=== PATIENT | male | born 1970 | race Caucasian/White ===

== ENCOUNTER 2020-02-12 08:46 | Outpatient (CLI) | payer BC, SELFPAY ==
--- NOTE | 2020-02-12 09:30 | EST_ITS ---
Patient Info Name: Skyler Polanco Age: 49 years : 1970 Gender: Male Ht: 72 in Wt: 370 lbs BSA: 3.01 m2 HR: 80 bpm BP: 140 / 90 mmHg Heart Rhythm: Sinus Rhythm Technical Quality: Excellent Exam Date: 02/12/2020 9:24 AM Exam Location: [facility] Patient Status: Outpatient Admit Date: 02/12/2020 Staff Ordering Physician: Edwin Delaney MD Attending Provider: Edwin Delaney MD Exercise Technologist: Ceci West CRT Exercise Physician: Trupti Ragland CEP Exam Type: CA stress jake w NM Study Info Indications AbnormalEKG - A nuclear stress test was performed. History/Risk Factors Patient has no known cardiac history or risk factors. Obesity. Summary 1. 1. Negative lexiscan stress test for ischemic ST changes by ECG criteria. 2. 2. Stable hemodynamics throughout the test. 3. 3. Nuclear scan to follow and will be reported separately. Please correlate with it. Protocol: LEXISCAN Stress ECG Details Stage: REST Duration (min): 1 min : 5 sec HR (bpm): 81 SBP (mmHg): 140 DBP (mmHg): 90 Stage: REST Duration (min): 7 min : 55 sec HR (bpm): 81 SBP (mmHg): 140 DBP (mmHg): 90 Stage: STAGE 1 Duration (min): 0 min : 8 sec HR (bpm): 75 SBP (mmHg): 140 DBP (mmHg): 90 Stage: RECOVERY Duration (min): 0 min : 52 sec HR (bpm): 109 SBP (mmHg): 140 DBP (mmHg): 90 Stage: RECOVERY Duration (min): 1 min : 52 sec HR (bpm): 105 SBP (mmHg): 97 DBP (mmHg): 65 Stage: RECOVERY Duration (min): 2 min : 25 sec HR (bpm): 98 SBP (mmHg): 97 DBP (mmHg): 65 Stage: RECOVERY Duration (min): 2 min : 52 sec HR (bpm): 98 SBP (mmHg): 118 DBP (mmHg): 61 Stage: RECOVERY Duration (min): 3 min : 52 sec HR (bpm): 91 SBP (mmHg): 124 DBP (mmHg): 60 Stage: RECOVERY Duration (min): 4 min : 52 sec HR (bpm): 93 SBP (mmHg): 129 DBP (mmHg): 56 Stage: RECOVERY Duration (min): 5 min : 52 sec HR (bpm): 94 SBP (mmHg): 136 DBP (mmHg): 70 Stage: RECOVERY Duration (min): 6 min : 6 sec HR (bpm): 91 SBP (mmHg): 136 DBP (mmHg): 70 Rest HR: 81 bpm Peak HR: 109 bpm Rest Sys BP: 140 mmHg Peak Sys BP: 136 mmHg Max Pred HR: 171 bpm % Max Pred HR: 64 % Target HR: 145 bpm Max RPP: 14,824 bpm*mmHg Termination Reason: Completion of Protocol Cardiac Symptoms: Dyspnea Total Time: 0 min : 8 sec Rest Soliz BP: 90 mmHg Peak Soliz BP: 70 mmHg Total Dose: 0.4 mg Resting ECG Sinus rhythm, IVCD. Stress ECG No ST changes. Arrhythmias No arrhythmias were observed during the examination. Report Signatures
== END 2020-02-12 08:47 | disposition home or self-care (01) ==
PROVIDERS: PCP Family Medicine; Visit Provider Family Medicine
DX: R94.31 Abnormal electrocardiogram [ECG] [EKG] (principal)
CPT/HCPCS: 78452; 93017; A9502; J2785

== ENCOUNTER → 2020-02-13 14:04 | Outpatient (CLI) | payer BC, SELFPAY ==
--- NOTE | ~2020-02-13 | XR_ITS ---
EXAMINATION: XR pelvis 1-2V DATE: 02/13/2020 14:58 INDICATION: Left hip pain. TECHNIQUE: An anteroposterior view of the pelvis was obtained on 2 radiographs. COMPARISON: CT abdomen and pelvis 08/21/2008 FINDINGS: Bone alignment is normal. There is depression of the superior articular surface of left fem oral head. There is moderate osteoarthritis of the hips. There is mild lumbar spondylosis. IMPRESSION: 1. Depression of the superior articular surface of left femoral head, which may be secondary to osteo necrosis. 2. Moderate osteoarthritis of the hips. Reviewed, dictated and finalized at location A. IMPRESSION: 1. Depression of the superior articular surface of left femoral head, which may be secondary to osteonecrosis. 2. Moderate osteoarthritis of the hips.
== END ==
PROVIDERS: PCP Family Medicine; Visit Provider Family Medicine
DX: M70.72 Other bursitis of hip, left hip (principal); M16.0 Bilateral primary osteoarthritis of hip
CPT/HCPCS: 72170

== ENCOUNTER 2020-04-08 11:09 | Outpatient (CLI) | payer BC, SELFPAY ==
--- NOTE | ~2020-04-08 | XR_ITS ---
EXAMINATION: XR lg joint inject/asp w image DATE: 04/08/2020 12:25 INDICATION: Left hip arthritis. TECHNIQUE: A time-out was performed to verify the patient's name, date of , and procedure to b e performed. The procedure including the risks, benefits, and alternatives was discussed with the pat ient. Risks discussed included bleeding and infection. The patient understood the risks and agreed to proceed. The skin overlying the left hip joint was prepped and draped in usual sterile fashion. An esthetic was administered with 1% lidocaine subcutaneously. A 22 G needle was advanced under fluoros copic guidance into the joint. Injection of 1 mL of Omnipaque 240 confirmed intra-articular position of the needle. Subsequently, injectate consisting of 2 mL 0.5% bupivacaine and 1 mL 80 mg/mL Depo-M edrol was instilled. The needle was removed and the entry site was cleaned and dressed. There were no immediate complications. Fluoroscopy exposure time was 0.1 minutes. The total number of images was 2. FINDINGS: Real-time fluoroscopy demonstrates the needle in the left hip joint. IMPRESSION: 1. Fluoroscopy guided left hip joint injection of local anesthetic and steroid . Reviewed, dictated and finalized at location A. INER OPERATOR
== END 2020-04-08 11:10 | disposition home or self-care (01) ==
LOC: ANHIMG 11:23
PROVIDERS: PCP Family Medicine; Visit Provider Nurse Practitioner Family
DX: M16.12 Unilateral primary osteoarthritis, left hip (principal)
CPT/HCPCS: 20610; 77002; J1040; Q9966

== ENCOUNTER 2020-07-10 11:22 | Outpatient (CLI) | payer BC, SELFPAY ==
--- NOTE | ~2020-07-10 | XR_ITS ---
EXAMINATION: XR lg joint inject/asp w image DATE: 07/10/2020 12:00 INDICATION: Left hip osteoarthritis with pain TECHNIQUE: A time-out was performed to verify the patient's name, date of , and procedure to b e performed. The procedure including the risks, benefits, and alternatives was discussed with the pat ient. Risks discussed included bleeding and infection. The patient understood the risks and agreed to proceed. The skin overlying the left hip joint was prepped and draped in usual sterile fashion. An esthetic was administered with 1% lidocaine subcutaneously. A 5 inch 22 G needle was advanced under fluoroscopic guidance into the joint. Injection of 0.5 mL of Omnipaque 240 confirmed intra-articular position of the needle. Subsequently, injectate consisting of 3 mm of a 2:1 mixture of 0.5% bupivac raymundo: 80 mg/mL Depo-Medrol for a total dose of 80 mg Depo-Medrol was instilled. Washout of contrast w as seen confirming intra-articular administration. The needle was removed and the entry site was helen dinh and dressed. There were no immediate complications. Fluoroscopy exposure time was 0.1 minutes. T he total number of images was 2. FINDINGS: Real-time fluoroscopy demonstrates the needle in the left hip joint. Patient's pain prior t o procedure:6/10. Patient's pain following the procedure: 0/10. IMPRESSION: 1. Left hip injection of local anesthetic and steroid with decrease in the patient's presenting pain. Reviewed, dictated and finalized at location A. IMPRESSION: 1. Left hip injection of local anesthetic and steroid with decrease in the angélica ent's presenting pain.
== END 2020-07-10 11:23 | disposition home or self-care (01) ==
PROVIDERS: PCP Family Medicine; Visit Provider Nurse Practitioner Family
DX: M16.12 Unilateral primary osteoarthritis, left hip (principal)
CPT/HCPCS: 20610; 77002; J1040; Q9966

== ENCOUNTER 2022-03-30 00:46 | Day surgery (SDC) | payer BC, SELFPAY ==
[2022-03-23 13:29] VITALS: BMI 43.6
--- NOTE | 2022-03-30 12:34 | P.PNAN_ITS ---
Anes - Initial Pre Proc Eval Procedure: Operation Date: 03/30/22 14:00 Proposed Procedures p Esophagogastroduodenoscopy & Colonoscopy - Ty Staley MD Date/Time: 03/30/22 12:34 Surgeon: Ty Staley MD Pre Op Diagnosis: Neoplasm Screening, Dysphagia Patient Data Age: 51 Gender: M Height: 1.85 m Weight: 150 kg Allergies Allergy/AdvReac Type Severity Reaction Status Date / Time No Known Allergies Allergy Unknown Verified 03/30/22 12:34 Home Medications Medication Instructions Recorded Confirmed Type sodium,potassium,mag sulfates 17.5 See Rx Instructions PO .COMPLEX 03/19/22 03/23/22 Rx gram-3.13 gram-1.6 gram oral soln #354 mL (Suprep Bowel Prep Kit) albuterol sulfate 90 mcg/actuation 2 inh inhalation DAILY PRN Wheezing 03/23/22 03/23/22 History aerosol inhaler omeprazole 20 mg capsule,delayed 40 mg PO DAILY 03/23/22 03/23/22 History release Patient hx anesthesia problems: none Family hx anesthesia problems: none Results Review: All pre-operative results and documents have been reviewed as part of the pre- operative evaluation. [facility] Past Medical History Medical History (Updated 03/18/22 @ 16:28 by Hafsa Diane, DMITRY) Barretts esophagus BMI greater than 40 Chest pain Colon cancer screening Coughing Degenerative joint disease (DJD) of hip History of esophageal stricture Left hip pain Obesity ARNOLD (obstructive sleep apnea) Wheezing Family History Family History Other Myasthenia Social History Social History Smoking status: Never smoker Tobacco type: smokeless tobacco Smokeless tobacco user: chewing tobacco Alcohol intake: current Drinks per week: 10 Alcohol use details: 6-8 drinks per week Substance use: never Substance use type: does not use Gender identity (if verbalized by the patient): Male Spiritual care concerns: No Anes - Eval Final PreProcedure Day of Procedure 03/30/22 12:34 Patient weight: morbidly obese Heart: regular rate and rhythm Lungs: clear to auscultation Airway: Mallampati scale class III Neurological: alert and oriented Last oral intake: >/= 8 hours ASA classification: III Emergent: no Anesthetic plan: proceed Anesthesia type and monitoring: general GIVS and standard monitoring Results Review: All pre-operative results and documents have been reviewed as part of the pre- operative evaluation. Informed Consent: The patient's anesthetic plan and its attendant risks and benefits were discussed with the patient/family/POA. Questions were solicited and answers prov ided to the satisfaction of the patient/family/POA.
[2022-03-30 12:46] VITALS: BP 147/93; PULSE 98; RESP 20; TEMP 36.2; O2SAT 98
[2022-03-30] MEDS: LACTATED RINGERS 1,000 ML 150 ML IV CONT (12:48)
--- NOTE | 2022-03-30 13:09 | PM.HPGS ---
History of Present Illness History of Present Illness Consent: Risks, benefits, and alternatives have been discussed and questions answered. Patient agrees to proceed with procedure. Chief complaint: Neoplasm Screening, Dysphagia Narrative: Skyler Polanco is a 51 year old male [facility] Past Medical History Medical History (Updated 03/18/22 @ 16:28 by Hafsa Diane APRN) Barretts esophagus BMI greater than 40 Chest pain Colon cancer screening Coughing Degenerative joint disease (DJD) of hip History of esophageal stricture Left hip pain Obesity ARNOLD (obstructive sleep apnea) Wheezing Family History Family History Other Myasthenia Social History Social History Smoking status: Never smoker Tobacco type: smokeless tobacco Smokeless tobacco user: chewing tobacco Alcohol intake: current Drinks per week: 10 Alcohol use details: 6-8 drinks per week Substance use: never Substance use type: does not use Gender identity (if verbalized by the patient): Male Spiritual care concerns: No Meds Home Medications and Allergies Home Medications Medication Instructions Recorded Confirmed Type sodium,potassium,mag sulfates 17.5 See Rx Instructions PO .COMPLEX 03/19/22 03/23/22 Rx gram-3.13 gram-1.6 gram oral soln #354 mL (Suprep Bowel Prep Kit) albuterol sulfate 90 mcg/actuation 2 inh inhalation DAILY PRN Wheezing 03/23/22 03/23/22 History aerosol inhaler omeprazole 20 mg capsule,delayed 40 mg PO DAILY 03/23/22 03/23/22 History release Allergies Allergy/AdvReac Type Severity Reaction Status Date / Time No Known Allergies Allergy Unknown Verified 03/30/22 12:34 Vital Signs Vital Signs - 24 hr 03/30/22 12:46 Temperature 97.2 F L Pulse Rate 98 Respiratory Rate 20 Blood Pressure 147/93 H Pulse Oximetry 98 Oxygen Delivery Room Air
--- NOTE | 2022-03-30 13:42 | SUR.OPER ---
EGD ENDED 1331, COLONOSCOPY STARTED 1339
[2022-03-30 13:55] VITALS: BP 143/96; PULSE 93; RESP 25; O2SAT 97
[2022-03-30 14:05] VITALS: BP 145/97; PULSE 85; RESP 17; O2SAT 98
[2022-03-30 14:15] VITALS: BP 155/95; PULSE 80; RESP 17; O2SAT 98
== END 2022-03-30 14:28 | disposition home or self-care (01) ==
PROVIDERS: PCP Family Medicine; Visit Provider Internal Medicine Gastroenterology
PROC: 0DJ08ZZ Inspection of Upper Intestinal Tract, Via Natural or Artificial Opening Endoscopic (ICD-10-PCS; CPT 43235; principal; 2022-03-30 14:00)
DX: Z12.11 Encounter for screening for malignant neoplasm of colon (principal); D12.5 Benign neoplasm of sigmoid colon; K22.70 Barrett's esophagus without dysplasia; R13.10 Dysphagia, unspecified; G47.33 Obstructive sleep apnea (adult) (pediatric); E66.01 Morbid (severe) obesity due to excess calories; Z68.41 Body mass index [BMI] 40.0-44.9, adult; F17.220 Nicotine dependence, chewing tobacco, uncomplicated
CPT/HCPCS: 45385; 43249; 88305; C1726; J2704; J7120

== ENCOUNTER 2023-06-15 02:25 | Day surgery (SDC) | payer OTHER, SELFPAY ==
[2023-06-02 13:52] VITALS: BMI 45.9
--- NOTE | 2023-06-11 15:01 | PC.NURSE ---
Patient called regarding upcoming procedure. Reviewed preop instructions, appointment times, and procedure prep.
[2023-06-15 13:30] VITALS: BP 148/94; PULSE 88; RESP 18; TEMP 36; O2SAT 99; BMI 44.9
[2023-06-15] MEDS: LACTATED RINGERS 1,000 ML 150 ML IV CONT (13:56)
--- NOTE | 2023-06-15 14:09 | WPDANESEPPF ---
Anes - Initial Pre Proc Eval Procedure: Operation Date: 06/15/23 15:00 Proposed Procedures p Esophagogastroduodenoscopy - Errol Valles MD Date/Time: 06/15/23 14:09 Surgeon: Errol Valles MD Pre Op Diagnosis: dysphagia,Gore's Esophagus Patient Data Age: 52 Gender: M Height: 1.85 m Weight: 154.4 kg Last Vital Signs Temp 36.0 C L 06/15/23 13:30 Pulse 88 06/15/23 13:30 Resp 18 06/15/23 13:30 BP 148/94 H 06/15/23 13:30 Pulse Ox 99 06/15/23 13:30 O2 Del Method Room Air 06/15/23 13:30 Allergies Allergy/AdvReac Type Severity Reaction Status Date / Time No Known Allergies Allergy Unknown Verified 06/15/23 13:36 Home Medications Medication Instructions Recorded Confirmed Type albuterol sulfate 90 mcg/actuation 2 inh inhalation DAILY PRN Wheezing 03/23/22 06/15/23 History aerosol inhaler omeprazole 20 mg capsule,delayed 40 mg PO DAILY 03/23/22 06/15/23 History release Patient hx anesthesia problems: none Family hx anesthesia problems: none Results Review: All pre-operative results and documents have been reviewed as part of the pre-operative evaluation. [facility] Past Medical History Medical History Barretts esophagus BMI greater than 40 Chest pain Colon cancer screening Coughing Degenerative joint disease (DJD) of hip Dysphagia History of esophageal stricture Left hip pain Obesity ARNOLD (obstructive sleep apnea) Wheezing Family History Family History Other Myasthenia Social History Social History Smoking status: Never smoker Tobacco type: smokeless tobacco Smokeless tobacco user: chewing tobacco Alcohol intake: current Drinks per week: 3 Alcohol use details: 6-8 drinks per week Substance use: never Substance use type: does not use Living arrangements: with family Gender identity (if verbalized by the patient): Male Spiritual care concerns: No Anes - Eval Final PreProcedure Day of Procedure 06/15/23 14:09 Patient weight: morbidly obese Heart: regular rate and rhythm Lungs: clear to auscultation Airway: Mallampati scale class II Neurological: alert and oriented Last oral intake: >/= 8 hours ASA classification: III Emergent: no Anesthetic plan: proceed Anesthesia type and monitoring: general GIVS and standard monitoring Results Review: All pre-operative results and documents have been reviewed as part of the pre-operative evaluation. Informed Consent: The patient's anesthetic plan and its attendant risks and benefits were discussed with the patient/family/POA. Questions were solicited and answers provided to the satisfaction of the patient/family/POA.
--- NOTE | 2023-06-15 14:10 | PM.HPGS ---
History of Present Illness History of Present Illness Consent: Risks, benefits, and alternatives have been discussed and questions answered. Patient agrees to proceed with procedure. 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 Using omeprazole daily. Review of Systems Constitutional: Constitutional: Denies headache(s) and Denies weakness Eyes: Eyes: Denies blurry vision ENT: Reports Normal hearing present, Denies headache(s) and Denies neck pain Cardiovascular: Cardiovascular: Denies chest pain and Denies dyspnea Respiratory: Respiratory: Denies dyspnea Gastrointestinal: Gastrointestinal: Reports no additional gastrointestinal complaints Genitourinary: Genitourinary: Denies dysuria Musculoskeletal: Musculoskeletal: Denies neck pain Integumentary/Breasts: Skin/Breast: Denies dry skin Neurologic: Reports Normal hearing present, Denies headache(s) and Denies weakness Psychiatric: Psychiatric: Denies anxiety Endocrine: Endocrine: Denies change in body appearance Hematologic/Lymphatic: Hematologic/Lymphatic: Denies easy bleeding Allergic/Immunologic: Allergic/Immunologic: Denies urticaria PMFSH Past Medical History Medical History Barretts esophagus BMI greater than 40 Chest pain Colon cancer screening Coughing Degenerative joint disease (DJD) of hip Dysphagia History of esophageal stricture Left hip pain Obesity ARNOLD (obstructive sleep apnea) Wheezing Family History Family History Other Myasthenia Social History Social History Smoking status: Never smoker Tobacco type: smokeless tobacco Smokeless tobacco user: chewing tobacco Alcohol intake: current Drinks per week: 3 Alcohol use details: 6-8 drinks per week Substance use: never Substance use type: does not use Living arrangements: with family Gender identity (if verbalized by the patient): Male Spiritual care concerns: No Meds Home Medications and Allergies Home Medications Medication Instructions Recorded Confirmed Type albuterol sulfate 90 mcg/actuation 2 inh inhalation DAILY PRN Wheezing 03/23/22 06/15/23 History aerosol inhaler omeprazole 20 mg capsule,delayed 40 mg PO DAILY 03/23/22 06/15/23 History release Allergies Allergy/AdvReac Type Severity Reaction Status Date / Time No Known Allergies Allergy Unknown Verified 06/15/23 13:36 Vital Signs Vital Signs - 24 hr 06/15/23 13:30 Temperature 96.8 F L Pulse Rate 88 Respiratory Rate 18 Blood Pressure 148/94 H Pulse Oximetry 99 Oxygen Delivery Room Air Exam Const: General: comfortable, no acute distress and obese HENMT: Face/Nose/Sinus: Normal nares present Eyes: General: appearance normal, both eyes and all related structures Neck: Neck: no JVD Resp: Auscultation: clear to auscultation bilaterally Cardio: Rate: regular rate Rhythm: regular rhythm GI: Inspection: non-distended GI Palp: Yes Soft to palpation Skin: General skin exam: normal color Neuro: General: gait normal Speech: normal speech Extrem: General: normal to inspection Psych: Mental Status: mental status grossly normal Assessment and Plan Assessment and plan (1) Barretts esophagus: Code(s): K22.70 - Krueger's esophagus without dysplasia Status: Acute Assessment and Plan: egd with bx on ppi daily (2) History of esophageal stricture: Code(s): Z87.19 - Personal history of other diseases of the digestive system Status: Acute Assessment and Plan: may need dilation
[2023-06-15 14:27] VITALS: BP 148/96; PULSE 93; RESP 24; O2SAT 94
[2023-06-15 14:37] VITALS: BP 143/91; PULSE 79; RESP 22; O2SAT 99
[2023-06-15 14:47] VITALS: BP 146/97; PULSE 71; RESP 21; O2SAT 96
== END 2023-06-15 15:00 | disposition home or self-care (01) ==
PROVIDERS: PCP Family Medicine; Visit Provider Internal Medicine Gastroenterology
PROC: 0DJ08ZZ Inspection of Upper Intestinal Tract, Via Natural or Artificial Opening Endoscopic (ICD-10-PCS; CPT 43235; principal; 2023-06-15 15:00)
DX: K22.70 Barrett's esophagus without dysplasia (principal); K22.2 Esophageal obstruction; Z87.19 Personal history of other diseases of the digestive system; K21.9 Gastro-esophageal reflux disease without esophagitis; F17.220 Nicotine dependence, chewing tobacco, uncomplicated; E66.9 Obesity, unspecified; Z68.41 Body mass index [BMI] 40.0-44.9, adult; G47.33 Obstructive sleep apnea (adult) (pediatric)
CPT/HCPCS: 43239; 43249; 88305; C1726; J2704; J7120

== ENCOUNTER 2023-08-16 14:29 | Outpatient (CLI) | payer OTHER, SELFPAY ==
--- NOTE | ~2023-08-16 | XR_ITS ---
EXAMINATION: XR chest 2V 08/16/2023 14:49 INDICATION: Cough with wheezing PROCEDURE: 2 view chest COMPARISON: 07/13/2007 FINDINGS: The lungs are clear. The cardiomediastinal silhouette is within normal limits. There are no pleural effusions. There is no pneumothorax suspected. IMPRESSION: 1: NO ACUTE CARDIOPULMONARY DISEASE. Reviewed, dictated and finalized at location B.
== END 2023-08-16 14:30 | disposition home or self-care (01) ==
LOC: CHSIMG 14:33
PROVIDERS: PCP Family Medicine; Visit Provider Family Medicine
DX: R05.8 Other specified cough (principal)
CPT/HCPCS: 71046

== ENCOUNTER 2024-06-08 12:45 | Outpatient (CLI) | payer OTHER, SELFPAY ==
--- NOTE | ~2024-06-08 | XR_ITS ---
EXAMINATION: XR chest 2V 06/08/2024 12:59 INDICATION: Asthma and wheezing PROCEDURE: 2 view chest COMPARISON: 08/16/2023 FINDINGS: The lungs are clear. The cardiomediastinal silhouette is within normal limits. There are no pleural effusions. There is no pneumothorax suspected. IMPRESSION: 1: NO ACUTE CARDIOPULMONARY DISEASE. Reviewed, dictated and finalized at location B. [facility]
--- OUTSIDE RECORDS SUMMARY | 2024-06-08 12:51 | XMS_ITS | Clinical Summary ---
Author Organization [facility] [employer] Address [address] [place] [place] [address] Care Team Providers Care Baking Assistant Name Role Phone Unavailable Primary Care Provider Unavailabl e Source Comments [facility] [employer],non-owned Affiliates and Associated Physician Practices is amultiple site organization consisting of ambulatory clinics and hospital sitesin [place], [place], [place] and [place]. This disclosure is being madepursuant to the Care Everywhere program and may not contain all information available regarding this patient. Last updated 18.[employer] [employer] Allergies No known active allergies Medications * Be aware that medications may not be up to date on this document. Alwaysverify current medications with the patient. 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 Pulse 106 05/13/2016 1:57 PM MACHINING AND ASSEMBLY SUPERVISOR Temperature 36.6 C (97.9 F) 05/13/2016 1:57 PM MACHINING AND ASSEMBLY SUPERVISOR Respiratory Rate 16 05/13/2016 1:57 PM MACHINING AND ASSEMBLY SUPERVISOR Oxygen Saturation 96% 05/13/2016 1:57 PM MACHINING AND ASSEMBLY SUPERVISOR Inhaled Oxygen Concentration - - Weight 142.9 kg (315 lb) 05/13/2016 1:57 PM MACHINING AND ASSEMBLY SUPERVISOR Height 185.4 cm (6' 1 ) 05/13/2016 1:57 PM MACHINING AND ASSEMBLY SUPERVISOR Body Mass Index 41.56 05/13/2016 1:57 PM MACHINING AND ASSEMBLY SUPERVISOR Plan of Treatment Health Maintenance Due Date Last Done Comments COLOGUARD (AGES 45-75) - COL ON CA SCREENING 1970 COLON MONITORING 1970 COLONOSCOPY - COLON CA SCREENING 1970 CT COLONOGRAPHY - COLON CA SCREENING 1970 Colorectal Cancer Screening 1970 FIT - COLON CA SCREENING 1970 FLEX SIG - COLON CA SCREENING 1970 LIPID TESTING 1970 HIV SCREENING 1985 HEPATITIS C SCREENING 10/24/1988 DTAP/TDAP/TD VACCINES (1 - Tdap) 1989 HEPATITIS B VACCINE (1 of 3 - 19+ 3-dose series) 1989 PNEUMOCOCCAL VACCINE 50+ (1 of 1 - PCV) 2020 ZOSTER VACCINE (1 of 2) 2020 COVID-19 VACCINE (1 - 2023-2 5 season) 2023 INFLUENZA VACCINE (#1) 2023 DEPRESSION SCREENING 04/19/2024 HIB VACCINE Aged Out No longer eligi ble based on patient's age to complete this topic HPV VACCINE Aged Out No longer eligi ble based on patient's age to complete this topic MENINGOCOCCAL (Group B) VACCINE Aged Out No longer eligible based on patient's age to complete this topic MENINGOCOCCAL VACCINE Aged Out No tucker isidra eligible based on patient's age to complete this topic PNEUMOCOCCAL VACCINE Aged Out No long er eligible based on patient's age to complete this topic
--- OUTSIDE RECORDS SUMMARY | 2024-06-08 12:51 | XMS_ITS | Referral Summary ---
Author Organization [facility] Healthcare Address [address] [place] [address] Care Team Providers Care Wildlife Management Professor Name Role Phone Edwin Delaney MD Primary Care Provide r Santosh Blackwell MD Unavailable [phone] Allergies No known active allergies Medications omeprazole (PriLOSEC) 20 mg capsule Take 2 capsules (40 mg total) by mouth daily 06/20/2023 Active aspirin (Ecotrin) 325 mg enteric coated tabletIndicatio ns:prevention of thrombosis Take 1 tablet (325 mg total) by mouth daily 42 tablet 12/08/2023 Active celecoxib (CeleBREX) 200 mg capsuleIndicati ons:Postoperati ve Acute Pain Take 1 capsule (200 mg total) by mouth 2 (two) times a day 84 capsule 12/08/2023 Active Active Problems Problem Noted Date Diagnosed Date Aftercare following left hip joint replacement s urgery 12/23/2023 Primary osteoarthritis of left hip 09/02/2023 Social History Tobacco Use Types Packs/Day Years Used Date Smoking Tobacco: Never Smokeless Tobacco: Never Tobacco Cessation:Counseling Given: No AUDIT-C Answer Date Recorded Q1: How often do you have a drink containing alc ohol? 2-4 times a month 12/01/2023 Q2: How many drinks containi ng alcohol do you have on a typical day when you are drinking? 1 or 2 12/01/2023 Frequency of Binge Drinking Not on file 11/17 Personal Safety Answer Date Recorded Have you ever been in or are you currently in a harmful physical or emotional relationship or is someone making you feel afraid or unsafe? Denies 12/08/2023 Sex and Gender Information Value Date Recorded Sex Assigned at Not on file Legal Sex Male 9:24 AM RECRUIT INSTRUCTOR Gender Identity Not on file Sexual Orientation Not on file Last Filed Vital Signs Vital Sign Reading Time Taken Comments Blood Pressure 153/89 01/28/2024 2:41 PM CDT Pulse 79 01/28/2024 2:41 PM CDT Temperature 36.2 C (97.2 F) 12/08/2023 2:35 PM CDT Respiratory Rate 20 12/08/2023 2:35 PM CDT Oxygen Saturation 96% 12/08/2023 2:35 PM CDT Inhaled Oxygen Concentration - - Weight 132.9 kg (293 lb) 01/28/2024 2:41 PM CDT Height 185.4 cm (6' 1 ) 01/28/2024 2:41 PM CDT Body Mass Index 38.66 01/28/2024 2:41 PM CDT Plan of Treatment Not on file Medical Devices Implanted Type Area Inspector Elevators Device Identifier Shelf Expiration Date Model / Serial / Lot Depuy [employer]opa[employer] Inc Viburnum 60mm 36mm Hip Neutral Liner Acetabular Altrx Sterile Latex Free [id number] - [id number] Implanted:Qty: 1 on 12/08/2023 by Santosh Blackwell MD at [facility] Left: Hip [employer]uy [employer] Inc [id number] 09/16/2028 [id number] / / [id number] Dep[employer] Viburnum 60mm Sector Hip Shell Acetabular Gription Sterile Latex Free [id number] - [id number] Implanted:Qty: 1 on 12/08/2023 by Santosh Blackwell MD at [facility] Left: Hip [employer] [id number] 07/17/2033 [id number] / / [id number] Dep[employer] Stem Fem Collar Actis 11 High Offset Hip [id number] - [id number] Implanted:Qty: 1 on 12/08/2023 by Santosh Blackwell MD at [facility] Left: Hip [employer] [id number] 03/18/2032 [id number] / / [id number] [employer] Articul/Devan 36mm Cementless Hip +5mm 04/01 Taper Head Femoral Latex Free [id number] - [id number] Implanted:Qty: 1 on 12/08/2023 by Santosh Blackwell MD at [facility] Left: Hip [employer] [id number] 10/16/2028 [id number] / / [id number] Insurance [facility] H[facility]/PPO Address: [address] [address] [place] [address] Advance Directives For more information, please contact: [phone] * Full Code (Latest Code Status on File) Date Activated Date Inactivated Comments 12/08/2023 11:42 AM 12/08/2023 6:38 PM Care Teams Wildlife Management Professor Relationship Specialty Start Date End Date Edwin Delaney MD [address] [place] [address] PCP - General 03/11/20 Santosh Blackwell MD [address] [facility] [address] MODI [address] [place] [address] Surgeon Orthopedic Surgery 12/08/23
--- OUTSIDE RECORDS SUMMARY | 2024-06-08 12:51 | XMS_ITS | Referral Summary ---
Author Organization [email or web address] Address [address] [facility] [place] [address] Care Team Providers Care Sewage Treatment Plant Operator Name Role Phone Unavailable Primary Care Provider Unavailabl e Source Comments [email or web address],non-owned Affiliates and Associated Physician Practices is amultiple site organization consisting of ambulatory clinics and hospital sitesin [place], [place] and [place]. This disclosure is being madepursuant to the Care Everywhere program and may not contain all information available regarding this patient. Last updated 18.[email or web address] Allergies No known active allergies Medications * [...] Comments Blood Pressure 130/88 05/13/2016 1:57 PM RADIO OPERATOR GROUND Pulse 106 05/13/2016 1:57 PM RADIO OPERATOR GROUND Temperature 36.6 C (97.9 F) 05/13/2016 1:57 PM RADIO OPERATOR GROUND Respiratory Rate 16 05/13/2016 1:57 PM RADIO OPERATOR GROUND Oxygen Saturation 96% 05/13/2016 1:57 PM RADIO OPERATOR GROUND Inhaled Oxygen Concentration - - Weight 142.9 kg (315 lb) 05/13/2016 1:57 PM RADIO OPERATOR GROUND Height 185.4 cm (6' 1 ) 05/13/2016 1:57 PM RADIO OPERATOR GROUND Body Mass Index 41.56 05/13/2016 1:57 PM RADIO OPERATOR GROUND Plan of Treatment Not on file
--- OUTSIDE RECORDS SUMMARY | 2024-06-08 12:51 | XMS_ITS | Patient Health Summary ---
Author Organization [facility] [employer] Address [address] [facility] [place] [address] Care Team Providers Care Transportation Maintenance Supervisor Name Role Phone Unavailable Primary Care Provider Unavailabl e Note from [facility] [employer] [facility],non-owned Affiliates and Associated Physician Practices is amultiple site organization consisting of ambulatory clinics and hospital sitesin [place], [place], [place]. This disclosure is being madepursuant to the Care Everywhere program and may not contain all information available regarding this patient. Last updated 18.[facility] [employer] Allergies No known active allergies Medications * Be aware that medications may not be up to date on this document. Alwaysverify current medications with the patient. * predniSONE (DELTASONE) 10 MG tablet(Started 05/13/2016) 5 tabs PO x 1 day, 4 tabs PO x 1 day, 3 tabs PO x 1 day, 2 tabs PO x 1 day, 1 tab PO x 1 day Social History Tobacco Use Types Packs/Day Years Used Date Smoking Tobacco: Never Sex and Gender Information Value Date Recorded Sex Assigned at Not on file Gender Identity Not on file Sexual Orientation Not on file Last Filed Vital Signs Vital Sign Reading Time Taken Comments Blood Pressure 130/88 05/13/2016 1:57 PM SODA DRY HOUSE OPERATOR Pulse 106 05/13/2016 1:57 PM SODA DRY HOUSE OPERATOR Temperature 36.6 C (97.9 F) 05/13/2016 1:57 PM SODA DRY HOUSE OPERATOR Respiratory Rate 16 05/13/2016 1:57 PM SODA DRY HOUSE OPERATOR Oxygen Saturation 96% 05/13/2016 1:57 PM SODA DRY HOUSE OPERATOR Inhaled Oxygen Concentration - - Weight 142.9 kg (315 lb) 05/13/2016 1:57 PM SODA DRY HOUSE OPERATOR Height 185.4 cm (6' 1 ) 05/13/2016 1:57 PM SODA DRY HOUSE OPERATOR Body Mass Index 41.56 05/13/2016 1:57 PM SODA DRY HOUSE OPERATOR Procedures * INFLUENZA A+B - POINT OF CARE (AMB)(Performed 05/13/2016) Performed for Influenza * STREP A SCREEN - POINT OF CARE (AMB) STL(Performed 05/13/2016) Performed for Influenza Results * STREP A SCREEN (05/13/2016) Strep A Rapid POCT Negative Negative Strep A Internal Control Present Lot # [id number] Expiration Date [id number] Throat ENTIRE THROAT (SURFACE REGION OF NECK) / Unknown 05/13/2016 Elias Neville PEDIATRIC LICENSED PRACTICAL NURSE-PROPOSAL ANALYST LAB - POINT OF CARE ORDERABLES * (ABNORMAL) INFLUENZA A+B - POINT OF CARE (AMB) (05/13/2016) Influenza A Antigen Rapid Positive(A) Negative Influenza B Antigen Rapid Negative Negative Influenza Internal Control present NEGATIVE - POSITIVE Influenza Lot Number [id number] Influenza Expiration Date Other NASOPHARYNGEAL SWAB / Unknown 05/13/2016 Elias Neville PEDIATRIC LICENSED PRACTICAL NURSE-PROPOSAL ANALYST LAB - POINT OF CARE ORDERABLES
--- OUTSIDE RECORDS SUMMARY | 2024-06-08 12:51 | XMS_ITS | Clinical Summary ---
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 Medical History Medical History Date Comments Sleep apnea GERD (gastroesophageal reflux disease) Social History Tobacco Use Types Packs/Day Years [...] on file Legal Sex Male 9:24 AM SNUFF DRIER Gender Identity Not on file Sexual Orientation Not on file Obstetrics History Last Filed Vital Signs Vital Sign Reading [...] 01/28/2024 2:41 PM CDT Plan of Treatment Health Maintenance Due Date Last Done Comments Colon Cancer Screening-Colonoscopy 1970 Depression Screening 1970 Hepatitis C Screening 1970 Prostate Cancer Screening-PSA 1970 DTaP/Tdap/Td Vaccine (1 - Tdap) 1981 Hepatitis B Screening 1988 Regular Well Visit/Exam 18-64 1988 Zoster Vaccine (1 of 2) 2020 Influenza Vaccine (#1) 2023 Pneumococcal vaccine <65 Aged Out No longer eligible based on patient's age to complete this topic Medical Devices Implanted Type Area Media Planner / Buyer Device Identifier Shelf Expiration Date Model / Serial / Lot Depuy [employer] Inc Fenton 60mm 36mm Hip Neutral Liner Acetabular Altrx Sterile Latex Free [id number] - [id number] Implanted:Qty: 1 on 12/08/2023 by Snatosh Blackwell MD at [facility] Left: Hip [employer]ed[employer] Inc [id number] 09/16/2028 [id number] / / [id number] Dep[employer] Fenton 60mm Sector Hip Shell Acetabular Gription Sterile Latex Free [id number] - [id number] Implanted:Qty: 1 on 12/08/2023 by Santosh Blackwell MD at [facility] Left: Hip [employer] Inc [id number] 07/17/2033 [id number] / / [id number] Dep[employer] Stem Fem Collar Actis 11 High Offset Hip [id number] - [id number] Implanted:Qty: 1 on 12/08/2023 by Santosh Blackwell MD at [facility] Left: Hip Depuy Orth[employer]ed[employer] Inc [id number] 03/18/2032 [id number] / / [id number] Depuy [employer] Inc Articul/Devan 36mm Cementless Hip +5mm /14 Taper Head Femoral Latex Free [id number] - [id number] Implanted:Qty: 1 on 12/08/2023 by Santosh Blackwell MD at [facility] Left: Hip Depuy [employer]ed[employer] Inc [id number] 10/16/2028 [id number] / / [id number] Insurance [facility] Advance Directives For more information, please contact: [phone] * Full Code (Latest Code Status on File) Date Activated Date Inactivated Comments 12/08/2023 11:42 AM 12/08/2023 6:38 PM Care Teams Letterpress Printing Machinist Relationship Specialty Start Date End Date Edwin Delaney MD [address] [place] [address] PCP - General 03/11/20 Santosh Blackwell MD [address] [place] [address] DR MODI [address] [place] [address] Surgeon Orthopedic Surgery 12/08/23
--- OUTSIDE RECORDS SUMMARY | 2024-06-08 12:51 | XMS_ITS | Clinical Summary ---
Author Organization [facility] Address [facility] [place] [address] Care Team Providers Care Rubber Worker Name Role Phone Edwin Delaney MD Primary Care Provider [phone] Ioana Navarro MD Unavailable Allergies No known active allergies Medications ibuprofen (MOTRIN) 200 MG tablet Take 1 tablet (200 mg total) by mouth every 6 (six) hours as needed for Pain. Active albuterol sulfate HFA 108 (90 Base) MCG/ACT inhaler Inhale 1 puff into the lungs as needed. 08/08/2022 Active omeprazole (PRILOSEC) 20 MG capsule Take 2 capsules (40 mg total) by mouth 2 (two) times daily. 06/20/2023 Active Active Problems Problem Noted Date Diagnosed Date Primary osteoarthritis of left hip 05/19/2023 Family History Medical History Relation Comments Asthma Brother Heart Attack Maternal Grandfather Open Heart Maternal Grandfather Myasthenia gravis Mother Relation Status Comments Brother Maternal Grandfather Mother Social History Tobacco Use Types Packs/Day Years Used Date Smoking Tobacco: Never Smokeless Tobacco: Current Chew Tobacco Cessation:Ready to Q uit: Not Asked; Counseling Given: Not Answered Alcohol Use Standard Drinks/Week Comments Yes 16.7 (1 standard drink = 0.6 oz pure alcohol) PHQ-2 Answer Date Recorded PHQ-2 Score - If the patient scores above 3, please move on to questions 3-9 0 02/13/2022 Sex and Gender Information Value Date Recorded Sex Assigned at Not on file Legal Sex Male 7:31 PM CDT Gender Identity Not on file Sexual Orientation Not on file Last Filed Vital Signs Vital Sign Reading Time Taken Comments Blood Pressure 124/88 07/07/2023 11:25 AM CDT Pulse 96 07/07/2023 11:25 AM CDT Temperature 36.5 C (97.7 F) 02/13/2022 9:59 AM CDT Respiratory Rate 18 07/07/2023 11:2 5 AM CDT Oxygen Saturation 96% 07/07/2023 11: 25 AM CDT Inhaled Oxygen Concentration - - Weight 153.5 kg (338 lb 6.4 oz) 024 11:25 AM CDT Height 185.4 cm (6' 1 ) 07/07/2023 11:2 5 AM CDT Body Mass Index 44.65 07/07/2023 11:25 AM CDT Plan of Treatment Health Maintenance Due Date Last Done Comments Colorectal Cancer Screening Colonoscopy (10 Years) 1970 Annual Physical 1973 Hepatitis C 1988 DTaP, Tdap and Td Vaccines ( 1 - Tdap) 1989 Hepatitis B Vaccines (1 of 3 - 19+ 3-dose series) 1989 Zoster Vaccines (1 of 2) 2020 COVID-19 Vaccine (1 - 2023-2 5 season) 2023 Influenza Adult (#1) 2024 Meningococcal B Vaccine Aged Out No l onger eligible based on patient's age to complete this topic Meningococcal Vaccine Aged Out No tucker isidra eligible based on patient's age to complete this topic Pneumococcal Vaccine: Pediat rics (0 to 5 Years) and At-Risk Patients (6 to 64 Years) Aged Out No longer eligible b ased on patient's age to complete this topic RSV Immunizations Under 20 Months Aged Out No longer eligible based on patient's age to complete this topic Additional Health Concerns Infection Onset Date Last Indicated MRSA 07/05/2023 07/05/2023 Care Teams Rubber Worker Relationship Specialty Start Date End Date Edwin Delaney MD [address] [place] [address] PCP - General FAMILY PRACTICE 01/22/22 Ioana Navarro MD [address] [place] [address] Consulting Physician CARDIOVASCULAR DISEASE 07/07/23
--- OUTSIDE RECORDS SUMMARY | 2024-06-08 12:51 | XMS_ITS | Encounter Summary ---
Author Organization [facility] Address [facility] [place] [address] Care Team Providers Care Fiscal Technician Name Role Phone Edwin Delaney MD Primary Care Provider [phone] Ioana Navarro MD Unavailable Encounter Details Date Type Department Care Team (Late st Contact Info) Description 02/06/2016 Abstract [facility] CONVERSION [address] [place] [address] , Generic ConversionMD Social History Tobacco Use Types Packs/Day Years Used Date Smoking Tobacco: Never Assessed Sex and Gender Information Value Date Recorded Sex Assigned at Not on file Legal Sex Male 7:31 PM CDT Gender Identity Not on file Sexual Orientation Not on file documented as of this encounter Plan of Treatment Not on file documented as of this encounter Visit Diagnoses Not on filedocumented in this encounter Additional Health Concerns Infection Onset Date Last Indicated Resolved Time MRSA 07/05/2023 07/05/2023 documented as of this encounter Care Teams Fiscal Technician Relationship Specialty Start Date End Date Edwin Delaney MD [address] [place] [address] PCP - General FAMILY PRACTICE 01/22/22 Ioana Navarro MD [address] [place] [address] Consulting Physician CARDIOVASCULAR DISEASE 07/07/23 documented as of this encounter
== END 2024-06-08 12:46 | disposition home or self-care (01) ==
LOC: CHSCARD 12:47
PROVIDERS: PCP Family Medicine; Visit Provider Nurse Practitioner Family
DX: J45.40 Moderate persistent asthma, uncomplicated (principal); R94.2 Abnormal results of pulmonary function studies
CPT/HCPCS: 71046; 94060; 94726; 94729

== ENCOUNTER 2025-01-09 01:42 | Day surgery (SDC) | payer OTHER, SELFPAY ==
[2024-12-25 12:22] VITALS: BMI 43.6
[2025-01-09 06:25] VITALS: BP 137/79; PULSE 65; RESP 18; TEMP 36.1; O2SAT 98
[2025-01-09] MEDS: LACTATED RINGERS 1,000 ML 150 ML IV CONT (06:36)
[2025-01-09] MEDS: SIMETHICONE ORAL SUSPENSION 20 MG/0.3 ML 30 ML BOTTLE 1.8 ML PO (06:37)
--- NOTE | 2025-01-09 07:13 | WPDANESEPPF ---
Anes - Initial Pre Proc Eval Procedure: Operation Date: 01/09/25 07:30 Proposed Procedures p Esophagogastroduodenoscopy - Alex Meeks MD Date/Time: 01/09/25 07:13 Surgeon: Alex Meeks MD Pre Op Diagnosis: Dysphagia, unspecified Patient Data Age: 54 Gender: M Height: 1.85 m Weight: 155.9 kg Last Vital Signs Temp 97 F L 01/09/25 06:25 Pulse 65 01/09/25 06:25 Resp 18 01/09/25 06:25 BP 137/79 01/09/25 06:25 Pulse Ox 98 01/09/25 06:25 O2 Del Method Room Air 01/09/25 06:25 Allergies Allergy/AdvReac Type Severity Reaction Status Date / Time No Known Allergies Allergy Unknown Verified 01/09/25 06:24 Home Medications ?Medication ?Instructions ?Recorded ?Confirmed ?Type albuterol sulfate 90 mcg/actuation 2 inh inhalation DAILY PRN Wheezing 03/23/22 12/25/24 History aerosol inhaler omeprazole 20 mg capsule,delayed 40 mg (2 x 20 mg) PO .bid #60 caps 06/15/23 12/25/24 Rx release omeprazole 40 mg capsule,delayed 40 mg PO BID #60 caps 03/14/24 01/09/25 Rx release montelukast 10 mg tablet 10 mg PO QPM 12/25/24 01/09/25 History umeclidinium 62.5 mcg-vilanterol 1 inh inhalation Q24H 12/25/24 01/09/25 History 25 mcg/actuation powdr for inhalation (Anoro Ellipta) Patient hx anesthesia problems: none Family hx anesthesia problems: none Results Review: All pre-operative results and documents have been reviewed as part of the pre-operative evaluation. [facility] Past Medical History Medical History Dysphagia Colon cancer screening Barretts esophagus History of esophageal stricture BMI greater than 40 Degenerative joint disease (DJD) of hip Coughing Wheezing Left hip pain ARNOLD (obstructive sleep apnea) Chest pain Obesity Family History Family History Other Myasthenia Social History Social History (Reviewed 09/23/25 @ 07:13 by ROSANNA Alcantar Smoking status: Former smoker Tobacco type: smokeless tobacco Smokeless tobacco user: chewing tobacco Alcohol intake: current Drinks per week: 33 Alcohol use details: 6-8 drinks per week Substance use: never Substance use type: does not use Living arrangements: with family Gender identity (if verbalized by the patient): Male Spiritual care concerns: No Anes - Eval Final PreProcedure Day of Procedure 01/09/25 07:13 Patient weight: morbidly obese Lungs: normal air movement Airway: Mallampati scale class II Neurological: alert and oriented Last oral intake: >/= 8 hours ASA classification: III Emergent: no Anesthetic plan: proceed Anesthesia type and monitoring: general GIVS and standard monitoring Results Review: All pre-operative results and documents have been reviewed as part of the pre-operative evaluation. ARNOLD on CPAP, BMI 45, pt w dysphagia. Informed Consent: The patient's anesthetic plan and its attendant risks and benefits were discussed with the patient/family/POA. Questions were solicited and answers provided to the satisfaction of the patient/family/POA.
--- NOTE | 2025-01-09 07:39 | PM.IMHP ---
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 In May 2023 the patient underwent dilatation with a balloon 12-15 mm and multiple biopsies. He started experiencing recurrence of dysphagia again and is now referred for EGD. Review of Systems Review of Systems: All systems reviewed & are unremarkable except as noted in HPI and below PMFSH Past Medical History Medical History Dysphagia Colon cancer screening Barretts esophagus History of esophageal stricture BMI greater than 40 Degenerative joint disease (DJD) of hip Coughing Wheezing Left hip pain ARNOLD (obstructive sleep apnea) Chest pain Obesity Family History Family History Other Myasthenia Social History Social History Smoking status: Former smoker Tobacco type: smokeless tobacco Smokeless tobacco user: chewing tobacco Alcohol intake: current Drinks per week: 33 Alcohol use details: 6-8 drinks per week Substance use: never Substance use type: does not use Living arrangements: with family Gender identity (if verbalized by the patient): Male Spiritual care concerns: No Meds Home Medications and Allergies Home Medications ?Medication ?Instructions ?Recorded ?Confirmed ?Type albuterol sulfate 90 mcg/actuation 2 inh inhalation DAILY PRN Wheezing 03/23/22 12/25/24 History aerosol inhaler omeprazole 20 mg capsule,delayed 40 mg (2 x 20 mg) PO .bid #60 caps 06/15/23 12/25/24 Rx release omeprazole 40 mg capsule,delayed 40 mg PO BID #60 caps 03/14/24 01/09/25 Rx release montelukast 10 mg tablet 10 mg PO QPM 12/25/24 01/09/25 History umeclidinium 62.5 mcg-vilanterol 1 inh inhalation Q24H 12/25/24 01/09/25 History 25 mcg/actuation powdr for inhalation (Anoro Ellipta) Allergies Allergy/AdvReac Type Severity Reaction Status Date / Time No Known Allergies Allergy Unknown Verified 01/09/25 06:24 Vital Signs Vital Signs - 24 hr 01/09/25 06:25 Temperature 97 F L Pulse Rate 65 Respiratory Rate 18 Blood Pressure 137/79 Pulse Oximetry 98 Oxygen Delivery Room Air Exam Const: General: cooperative and healthy appearing Resp: Effort & Inspection: normal respiratory effort and able to speak in complete sentences Auscultation: clear to auscultation bilaterally Cardio: Rate: regular rate Rhythm: regular rhythm GI: Inspection: normal to inspection GI Palp: No No hepatosplenomegaly present Auscultation: normal bowel sounds Rectal Exam: deferred Skin: General skin exam: normal color Psych: Appearance: grossly normal Mental Status: mental status grossly normal Assessment and Plan Assessment and plan (1) History of esophageal stricture: Code(s): Z87.19 - Personal history of other diseases of the digestive system Status: Acute Assessment and Plan: The patient is deemed a good candidate for the procedure. Consent signed. Will proceed. (2) Barretts esophagus: Code(s): K22.70 - Gore's esophagus without dysplasia Status: Acute
[2025-01-09] MEDS: BENZOCAINE (*SP) 60 ML SPRAY CAN (HURRICAINE) 1 SPRAY MUCOUS MEM (07:42)
--- NOTE | 2025-01-09 07:59 | S_PTH ---
PATIENT: Skyler Polanco LOC: [facility] U#:[id number] AGE/SX: 54/M ROOM: RE01/09/[address]: Alex Meeks MD : 1970 BED: DIS: 01/09/2025 SPEC #: [id number] RECD: 01/09/25 09:00 STATUS: TRISHA REMarck #: [id number] JUDITH: 01/09/25 07:[address]: Alex Meeks DEPT: [facility] Surgical RECD BY: Jeff Mercer ENTERED: 01/09/25 09:00 SP TYPE: Surgical OTHR DR: Edwin Delaney MD Tissues: A - Esophageal Biopsy Procedures: Hematoxylin and Eosin Stain Gross and Microscopic Level 4
[2025-01-09 08:02] VITALS: BP 145/77; PULSE 80; RESP 24; O2SAT 96
[2025-01-09 08:12] VITALS: BP 117/75; PULSE 63; RESP 21; O2SAT 98
[2025-01-09 08:22] VITALS: BP 136/77; PULSE 61; RESP 24; O2SAT 99
== END 2025-01-09 08:41 | disposition home or self-care (01) ==
PROVIDERS: PCP Family Medicine; Referring Provider Nurse Practitioner; Visit Provider Internal Medicine Gastroenterology
PROC: 0DJ08ZZ Inspection of Upper Intestinal Tract, Via Natural or Artificial Opening Endoscopic (ICD-10-PCS; CPT 43249; principal; 2025-01-09 07:30)
DX: K22.70 Barrett's esophagus without dysplasia (principal); K22.2 Esophageal obstruction; K44.9 Diaphragmatic hernia without obstruction or gangrene; G47.33 Obstructive sleep apnea (adult) (pediatric); M16.10 Unilateral primary osteoarthritis, unspecified hip; E66.01 Morbid (severe) obesity due to excess calories; Z68.42 Body mass index [BMI] 45.0-49.9, adult; Z79.51 Long term (current) use of inhaled steroids; Z99.89 Dependence on other enabling machines and devices; Z87.891 Personal history of nicotine dependence; Z87.19 Personal history of other diseases of the digestive system
CPT/HCPCS: 43249; 43239; 88305; C1726; J1596; J2003; J2704; J7120

== ENCOUNTER 2025-03-07 01:35 | Day surgery (SDC) | payer OTHER, SELFPAY ==
[2025-03-01 14:34] VITALS: BMI 43.6
--- OUTSIDE RECORDS SUMMARY | 2025-03-07 05:35 | XMS_ITS | Clinical Summary ---
Author Organization [facility] Address [facility] access [facility] [place] [address] Care Team Providers Care Bench Worker Helper Name Role Phone Edwin Delaney MD Primary Care Provider [phone] Ioana Navarro MD Unavailable Allergies No known [...] 11:25 AM CDT Height 185.4 cm (6' 1) 07/07/2023 11:2 5 AM CDT Body Mass Index 44.65 07/07/2023 11:25 AM CDT Plan of Treatment Health Maintenance Due Date Last Done Comments Colorectal Cancer Screening Colonoscopy (10 Years) 1970 Annual Physical 1973 Hepatitis C 1988 DTaP, Tdap and Td Vaccines ( 1 - Tdap) 1989 Hepatitis B Vaccines (1 of 3 - 19+ 3-dose series) 1989 Pneumococcal Vaccine: 50+ Ye ars (1 of 1 - PCV) 2020 Zoster Vaccines (1 of 2) 2020 COVID-19 Vaccine (1 - 2024-2 6 season) 2024 Influenza Adult (#1) 2025 Hepatitis A Vaccines Aged Out No long er eligible based on patient's age to complete this topic Meningococcal B Vaccine Aged Out No l [...] Last Indicated MRSA 07/05/2023 07/05/2023 Care Teams Bench Worker Helper Relationship Specialty Start Date End Date Edwin Delaney MD [address] [place] [address] PCP - General FAMILY PRACTICE 01/22/22 Ioana Navarro MD [address] [place] [address] Consulting Physician CARDIOVASCULAR DISEASE 07/07/23
--- OUTSIDE RECORDS SUMMARY | 2025-03-07 05:36 | XMS_ITS | Clinical Summary ---
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 Gender Identity Not on file Sexual Orientation [...] 2:41 PM CDT Height 185.4 cm (6' 1) 01/28/2024 2:41 PM CDT Body Mass Index 38.66 01/28/2024 2:41 PM CDT Plan of Treatment Health Maintenance Due Date Last Done Comments Colon Cancer Screening-Colonoscopy 1970 Depression Screening 1970 Hepatitis C Screening 1970 Prostate Cancer Screening-PSA 1970 DTaP/Tdap/Td Vaccine (1 - Tdap) 1981 Hepatitis B Screening 1988 Regular Well Visit/Exam 18-64 1988 Zoster Vaccine (1 of 2) 2020 Influenza Vaccine (#1) 2024 Pneumococcal vaccine <65 Aged Out No longer eligible based on patient's age to complete this topic Medical Devices Implanted Type Area Soda Tester Device Identifier Shelf Expiration Date Model / Serial / Lot Depuy Orthopa[employer] Inc [place] 60mm 36mm Hip Neutral Liner Acetabular Altrx Sterile Latex Free [id number] - [id number] Implanted:Qty: 1 on 12/08/2023 by Santosh Blackwell MD at [facility] Left: Hip Depuy Orthopaedics Inc [id number] 09/16/2028 [id number] / / [id number] Depuy [employer] [place] 60mm Sector Hip Shell Acetabular Gription Sterile Latex Free [id number] - [id number] Implanted:Qty: 1 on 12/08/2023 by Santosh Blackwell MD at [facility] Left: Hip Depuy Orthopaedics Inc [id number] 07/17/2033 [id number] / / [id number] Depuy Orthopaedics Inc Stem Fem Collar Actis 11 High Offset Hip [id number] - [id number] Implanted:Qty: 1 on 12/08/2023 by Santosh Blackwell MD at [facility] Left: Hip Depuy Orthopaed[employer] Inc [id number] 03/18/2032 [id number] / / [id number] Depuy Orthopaedics Inc Articul/Devan 36mm Cementless Hip +5mm /14 Taper Head Femoral Latex Free [id number] - [id number] Implanted:Qty: 1 on 12/08/2023 by Santosh Blackwell MD at [facility] Left: Hip Depuy Orthopaed[employer] Inc [id number] 10/16/2028 [id number] / / [id number] Insurance [facility] Advance Directives For more information, please contact: [phone] * Full Code (Latest Code Status on File) Date Activated Date Inactivated Comments 12/08/2023 11:42 AM 12/08/2023 6:38 PM Care Teams Armature Connector Relationship Specialty Start Date End Date Edwin Delaney MD [address] [place] [address] PCP - General 03/11/20 Santosh Blackwell MD [address] [place] [address] DR MODI [address] [place] [address] Surgeon Orthopedic Surgery 12/08/23
--- OUTSIDE RECORDS SUMMARY | 2025-03-07 05:36 | XMS_ITS | Encounter Summary ---
Author Organization [facility] Address [facility] [place] [address] Care Team Providers Care Print Production Manager Name Role Phone Edwin Delaney MD Primary Care Provider [phone] Ioana Navarro MD Unavailable Encounter Details Date Type Department Care Team (Late st Contact Info) Description 02/06/2016 Abstract [facility] CONVERSION [address] [place] [address] , Generic ConversionMD Social History Tobacco Use [...] documented as of this encounter Care Teams Print Production Manager Relationship Specialty Start Date End Date Edwin Delaney MD [address] [place] [address] PCP - General FAMILY PRACTICE 01/22/22 Ioana Navarro MD [address] [place] [address] Consulting Physician CARDIOVASCULAR DISEASE 07/07/23 documented as of this encounter
--- OUTSIDE RECORDS SUMMARY | 2025-03-07 05:36 | XMS_ITS | Clinical Summary ---
Author Organization [facility] [employer] Address [address] [facility] [place] [address] Care Team Providers Care Studio Sales Associate Name Role Phone Unavailable Primary Care Provider Unavailabl e Source Comments [facility] [employer],non-owned Affiliates and Associated Physician Practices is amultiple site organization consisting of ambulatory clinics and hospital sitesin [place], [place], [place] and [place]. This disclosure is being madepursuant to the Care Everywhere program and may not contain all information available regarding this patient. Last updated 18.[employer] Allergies No known active allergies Medications * Be aware that medications may not be up to date on this document. Alwaysverify current medications with the patient. predniSONE (DELTASONE) 10 MG tablet 5 tabs [...] at Not on file Legal Sex Male 2:51 PM CDT Gender Identity Not on file Sexual Orientation Not on file Last Filed Vital Signs Vital Sign Reading Time Taken Comments Blood Pressure 130/88 05/13/2016 1:57 PM BOWLING BALL GRADER Pulse 106 05/13/2016 1:57 PM BOWLING BALL GRADER Temperature 36.6 C (97.9 F) 05/13/2016 1:57 PM BOWLING BALL GRADER Respiratory Rate 16 05/13/2016 1:57 PM BOWLING BALL GRADER Oxygen Saturation 96% 05/13/2016 1:57 PM BOWLING BALL GRADER Inhaled Oxygen Concentration - - Weight 142.9 kg (315 lb) 05/13/2016 1:57 PM BOWLING BALL GRADER Height 185.4 cm (6' 1) 05/13/2016 1:57 PM BOWLING BALL GRADER Body Mass Index 41.56 05/13/2016 1:57 PM BOWLING BALL GRADER Plan of Treatment Health Maintenance Due Date [...] 2020 ZOSTER VACCINE (1 of 2) 2020 DEPRESSION SCREENING 04/19/2024 COVID-19 VACCINE (1 - 2023-2 5 season) 2024 INFLUENZA VACCINE (#1) 2024 HIB VACCINE Aged Out No longer eligi ble based on patient's age to complete this topic HPV VACCINE Aged Out No longer eligi ble based on patient's age to complete this topic MENINGOCOCCAL (Group B) VACC INE SHARED DECISION-MAKING Aged Out No longer eligibl e based on patient's age to complete this topic MENINGOCOCCAL GROUPS A/C/Y/W VACCINE Aged Out No longer eligible b ased on patient's age to complete this topic Insurance [facility] SELF PAY NO INSURANCE Member Subscriber Plan / Payer (Ef fective for All Dates) Name:Petar Polanco Member ID:Not on file Relation to Subscriber:Not on file Name:PETAR POLANCO Subscriber ID:Not on file (Home) Address: [address] [place] [address] Payer ID:Not on file Group ID:Not on file Type:Self Pay Address: [place], [place] SELF PAY NO INSURANCE Member Subscriber Plan / Payer (Ef fective for All Dates) Name:Petar Polanco Member ID:Not on file Relation to Subscriber:Not on file Name:PETAR POLANCO Subscriber ID:Not on file Address: [address] [address] Payer ID:Not on file Group ID:Not on file Type:Self Pay Address: [facility] SELF PAY NO INSURANCE Member Subscriber Plan / Payer (Ef fective for All Dates) Name:Petar Polanco Member ID:Not on file Relation to Subscriber:Not on file Name:PETAR POLANCO Subscriber ID:Not on file Address: [address] [address] Payer ID:Not on file Group ID:Not on file Type:Self Pay Address: [facility] SELF PAY NO INSURANCE Member Subscriber Plan / Payer (Ef fective for All Dates) Name:Darrian Polancoal Member ID:Not on file Relation to Subscriber:Not on file Name:PETAR POLANCO Subscriber ID:Not on file Address: [address] [address] Payer ID:Not on file Group ID:Not on file Type:Self Pay Address: [facility]
[2025-03-07 10:08] VITALS: BP 143/86; PULSE 57; RESP 20; TEMP 36.1; O2SAT 98
[2025-03-07] MEDS: LACTATED RINGERS 1,000 ML 150 ML IV CONT (10:28)
--- NOTE | 2025-03-07 10:51 | PM.IMHP ---
H&P: HPI History of Present Illness Date/Time: 03/07/25 10:51 Chief Complaint: Dysphagia-Gore's esophagus Narrative: 2 months ago the patient underwent an EGD finding a long segment Gore's esophagus and a critical mid esophageal stricture, which was dilated up to 12 mm with a CRE balloon. He comes today for follow-up and repeat EGD. Review of Systems Review of Systems: All systems reviewed & are unremarkable except as noted in HPI and below PMFSH Past Medical History Medical History Dysphagia Colon cancer screening Barretts esophagus History of esophageal stricture BMI greater than 40 Degenerative joint disease (DJD) of hip Coughing Wheezing Left hip pain ARNOLD (obstructive sleep apnea) Chest pain Obesity Family History Family History Other Myasthenia Social History Social History Smoking status: Never smoker Tobacco type: smokeless tobacco Smokeless tobacco user: chewing tobacco Alcohol intake: current Drinks per week: 5 Alcohol use details: 6-8 drinks per week Substance use: never Substance use type: does not use Living arrangements: with family Additional living arrangements comments: with sp Gender identity (if verbalized by the patient): Male Spiritual care concerns: No Meds Home Medications and Allergies Home Medications ?Medication ?Instructions ?Recorded ?Confirmed ?Type albuterol sulfate 90 mcg/actuation 2 inh inhalation DAILY PRN Wheezing 03/23/22 03/07/25 History aerosol inhaler omeprazole 20 mg capsule,delayed 40 mg (2 x 20 mg) PO .bid #60 caps 06/15/23 03/01/25 Rx release montelukast 10 mg tablet 10 mg PO QPM 12/25/24 03/01/25 History umeclidinium 62.5 mcg-vilanterol 1 inh inhalation Q24H 12/25/24 03/01/25 History 25 mcg/actuation powdr for inhalation (Anoro Ellipta) Allergies Allergy/AdvReac Type Severity Reaction Status Date / Time No Known Allergies Allergy Unknown Verified 03/07/25 10:07 Vital Signs Vital Signs - 24 hr 03/07/25 10:08 Temperature 97 F L Pulse Rate 57 L Respiratory Rate 20 Blood Pressure 143/86 H Pulse Oximetry 98 Oxygen Delivery Room Air Exam Const: General: cooperative and healthy appearing Resp: Effort & Inspection: normal respiratory effort and able to speak in complete sentences Auscultation: clear to auscultation bilaterally Cardio: Rate: regular rate Rhythm: regular rhythm GI: Inspection: normal to inspection GI Palp: No No hepatosplenomegaly present Auscultation: normal bowel sounds Rectal Exam: deferred Skin: General skin exam: normal color Psych: Appearance: grossly normal Mental Status: mental status grossly normal Assessment and Plan Assessment and plan (1) History of esophageal stricture: Code(s): Z87.19 - Personal history of other diseases of the digestive system Status: Acute Assessment and Plan: The patient is deemed a good candidate for the procedure. Consent signed. Will proceed. (2) Barretts esophagus: Code(s): K22.70 - Gore's esophagus without dysplasia Status: Acute
--- NOTE | 2025-03-07 10:52 | P.PNAN_ITS ---
Anes - Initial Pre Proc Eval Procedure: Operation Date: 03/07/25 11:00 Proposed Procedures p Esophagogastroduodenoscopy - Alex Meeks MD Date/Time: 03/07/25 10:52 Surgeon: Alex Meeks MD Pre Op Diagnosis: Gore's esophagus without dysplasia Patient Data Age: 54 Gender: M Height: 1.85 m Weight: 156.3 kg Last Vital Signs Temp 36.1 C L 03/07/25 10:08 Pulse 57 L 03/07/25 10:08 Resp 20 03/07/25 10:08 BP 143/86 H 03/07/25 10:08 Pulse Ox 98 03/07/25 10:08 O2 Del Method Room Air 03/07/25 10:08 Allergies Allergy/AdvReac Type Severity Reaction Status Date / Time No Known Allergies Allergy Unknown Verified 03/07/25 10:07 Home Medications ?Medication ?Instructions ?Recorded ?Confirmed ?Type albuterol sulfate 90 mcg/actuation 2 inh inhalation DA ANTOINE PRN Wheezing 03/23/22 03/07/25 History aerosol inhaler omeprazole 20 mg capsule,delayed 40 mg (2 x 20 mg) PO .bid #60 caps 06/15/23 03/01/25 Rx release montelukast 10 mg tablet 10 mg PO QPM 12/25/24 History umeclidinium 62.5 mcg-vilanterol 1 inh inhalation Q24H 12/25/24 03/01/25 History 25 mcg/actuation powdr for inhalation (Anoro Ellipta) Patient hx anesthesia problems: none Family hx anesthesia problems: none Results Review: All pre-operative results and documents have been reviewed as part of the pre- operative evaluation. [facility] Past Medical History Medical History Dysphagia Colon cancer screening Barretts esophagus History of esophageal stricture BMI greater than 40 Degenerative joint disease (DJD) of hip Coughing Wheezing Left hip pain ARNOLD (obstructive sleep apnea) Chest pain Obesity Family History Family History Other Myasthenia Social History Social History Smoking status: Never smoker Tobacco type: smokeless tobacco Smokeless tobacco user: chewing tobacco Alcohol intake: current Drinks per week: 5 Alcohol use details: 6-8 drinks per week Substance use: never Substance use type: does not use Living arrangements: with family Additional living arrangements comments: with sp Gender identity (if verbalized by the patient): Male Spiritual care concerns: No Anes - Eval Final PreProcedure Day of Procedure 03/07/25 10:52 Patient weight: morbidly obese Heart: regular rate and rhythm Lungs: clear to auscultation Airway: Mallampati scale class II Neurological: alert and oriented Last oral intake: >/= 8 hours ASA classification: III Emergent: no Anesthetic plan: proceed Anesthesia type and monitoring: general GIVS and standard monitoring Results Review: All pre-operative results and documents have been reviewed as part of the pre- operative evaluation. Informed Consent: The patient's anesthetic plan and its attendant risks and benefits were discussed with the patient/family/POA. Questions were solicited and answers provided to the satisfaction of the patient/family/POA.
[2025-03-07] MEDS: BENZOCAINE (*SP) 60 ML SPRAY CAN (HURRICAINE) 1 SPRAY MUCOUS MEM (10:59)
[2025-03-07 11:14] VITALS: BP 143/92; PULSE 80; RESP 26; O2SAT 95
[2025-03-07 11:24] VITALS: BP 139/82; PULSE 81; RESP 26; O2SAT 96
[2025-03-07 11:34] VITALS: BP 141/86; PULSE 70; RESP 23; O2SAT 97
== END 2025-03-07 11:37 | disposition home or self-care (01) ==
PROVIDERS: PCP Family Medicine; Referring Provider Internal Medicine Gastroenterology; Visit Provider Internal Medicine Gastroenterology
PROC: 0DJ08ZZ Inspection of Upper Intestinal Tract, Via Natural or Artificial Opening Endoscopic (ICD-10-PCS; CPT 43249; principal; 2025-03-07 11:00)
DX: Z09 Encounter for follow-up examination after completed treatment for conditions other than malignant neoplasm (principal); K22.70 Barrett's esophagus without dysplasia; K22.2 Esophageal obstruction; K44.9 Diaphragmatic hernia without obstruction or gangrene; M16.10 Unilateral primary osteoarthritis, unspecified hip; G47.33 Obstructive sleep apnea (adult) (pediatric); F17.220 Nicotine dependence, chewing tobacco, uncomplicated; E66.01 Morbid (severe) obesity due to excess calories; Z68.42 Body mass index [BMI] 45.0-49.9, adult; Z79.51 Long term (current) use of inhaled steroids; Z87.19 Personal history of other diseases of the digestive system
CPT/HCPCS: 43249; C1726; J2003; J2704; J7120

== ENCOUNTER 2025-04-17 01:08 | Day surgery (SDC) | payer OTHER, SELFPAY ==
[2025-03-21 13:02] VITALS: BMI 43.6
--- OUTSIDE RECORDS SUMMARY | 2025-04-17 01:09 | XMS_ITS | Clinical Summary ---
Author Organization [facility] Address [facility] [place] [address] Care Team Providers Care Priming Machine Operator Name Role Phone Edwin Delaney MD Primary Care Provider [phone] Ioana Navarro MD Unavailable Allergies No known [...] Last Indicated MRSA 07/05/2023 07/05/2023 Care Teams Priming Machine Operator Relationship Specialty Start Date End Date Edwin Delaney MD [address] [place] [address] PCP - General FAMILY PRACTICE 01/22/22 Ioana Navarro MD [address] [place] [address] Consulting Physician CARDIOVASCULAR DISEASE 07/07/23
--- OUTSIDE RECORDS SUMMARY | 2025-04-17 01:09 | XMS_ITS | Clinical Summary ---
Author Organization [facility] Address [address] [facility] [place] [address] Care Team Providers Care Communication Studies Professor Name Role Phone Unavailable Primary Care Provider Unavailabl e Source Comments [facility],non-owned Affiliates and Associated Physician Practices is amultiple site organization consisting of ambulatory clinics and hospital sitesin [place], [place], [place] and [place]. This disclosure is being madepursuant to the Care Everywhere program and may not contain all information available regarding this patient. Last updated 18.[employer] [facility] Allergies No known active allergies Medications * [...] Comments Blood Pressure 130/88 05/13/2016 1:57 PM FINANCIAL REPORTING ADVISOR Pulse 106 05/13/2016 1:57 PM FINANCIAL REPORTING ADVISOR Temperature 36.6 C (97.9 F) 05/13/2016 1:57 PM FINANCIAL REPORTING ADVISOR Respiratory Rate 16 05/13/2016 1:57 PM FINANCIAL REPORTING ADVISOR Oxygen Saturation 96% 05/13/2016 1:57 PM FINANCIAL REPORTING ADVISOR Inhaled Oxygen Concentration - - Weight 142.9 kg (315 lb) 05/13/2016 1:57 PM FINANCIAL REPORTING ADVISOR Height 185.4 cm (6' 1) 05/13/2016 1:57 PM FINANCIAL REPORTING ADVISOR Body Mass Index 41.56 05/13/2016 1:57 PM FINANCIAL REPORTING ADVISOR Plan of Treatment Health Maintenance Due Date [...] DEPRESSION SCREENING 04/19/2024 COVID-19 VACCINE (1 - 2024-2 6 season) 2024 INFLUENZA VACCINE (#1) 2024 HIB [...] patient's age to complete this topic Insurance [facility] SELF PAY NO INSURANCE Member Subscriber Plan / Payer (Ef fective for All Dates) Name:Petar Polanco Member ID:Not on file Relation to Subscriber:Not on file Name:PETAR POLANCO Subscriber ID:Not on file (Home) Address: [address] [address] Payer ID:Not on file Group ID:Not on file Type:Self Pay Address: [place], [place] * Guarantor: PETAR POLANCO Account Type Relation to Patient Date of Phone Billing Address Personal/Family Spouse [address] [address] SELF PAY NO INSURANCE Member Subscriber Plan / Payer (Ef fective for All Dates) Name:Petar Polanco Member ID:Not on file Relation to Subscriber:Not on file Name:PETAR POLANCO Subscriber ID:Not on file Address: [address] [address] Payer ID:Not on file Group ID:Not on file Type:Self Pay Address: [facility] SELF PAY NO INSURANCE Member Subscriber Plan / Payer (Ef fective for All Dates) Name:Petar Polanco Member ID:Not on file Relation to Subscriber:Not on file Name:FABIORONNIEPETAR Subscriber ID:Not on file Address: [address] Payer ID:Not on file Group ID:Not on file Type:Self Pay Address: [facility] Member Subscriber Plan / Payer (Ef fective for All Dates) Name:Petar Polanco Member ID:Not on file Relation to Subscriber:Not on file Name:PETAR POLANCO Subscriber ID:Not on file Address: [address] Payer ID:Not on file Group ID:Not on file Type:Self Pay Address: [facility] Address: [address] [address]
--- OUTSIDE RECORDS SUMMARY | 2025-04-17 01:09 | XMS_ITS | Encounter Summary ---
Author Organization [facility] Address [facility] [place] [address] Care Team Providers Care Armature Winder Helper Repair Name Role Phone Edwin Delaney MD Primary Care Provider [phone] Ioana Navarro MD Unavailable Encounter Details Date Type Department Care Team (Late st Contact Info) Description 02/06/2016 Abstract [facility] CONVERSION [address] [place] [address] , Generic ConversionMD Social History Tobacco Use [...] documented as of this encounter Care Teams Armature Winder Helper Repair Relationship Specialty Start Date End Date Edwin Delaney MD [address] [place] [address] PCP - General FAMILY PRACTICE 01/22/22 Ioana Navarro MD [address] [place] [address] Consulting Physician CARDIOVASCULAR DISEASE 07/07/23 documented as of this encounter
--- OUTSIDE RECORDS SUMMARY | 2025-04-17 01:09 | XMS_ITS | Clinical Summary ---
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 Gender Identity Not on file Sexual Orientation [...] this topic Medical Devices Implanted Type Area Pmo Project Manager Device Identifier Shelf Expiration Date Model / Serial / Lot [employer]uy [employer] [place] 60mm 36mm Hip Neutral Liner Acetabular Altrx Sterile Latex Free [id number] - [id number] Implanted:Qty: 1 on 12/08/2023 by Santosh Blackwell MD at [facility] Left: Hip [employer] [id number] 09/16/2028 [id number] / / [id number] [employer] [place] 60mm Sector Hip Shell Acetabular Gription Sterile Latex Free [id number] - [id number] Implanted:Qty: 1 on 12/08/2023 by Santosh Blackwell MD at [facility] Left: Hip [employer] [id number] 07/17/2033 [id number] / / [id number] Depuy [employer] Stem Fem Collar Actis 11 High Offset Hip [id number] - [id number] Implanted:Qty: 1 on 12/08/2023 by Santosh Blackwell MD at [facility] Left: Hip [employer] [id number] 03/18/2032 [id number] / / [id number] [employer]uy [employer] Articul/Devan 36mm Cementless Hip +5mm /14 Taper Head Femoral Latex Free [id number] - [id number] Implanted:Qty: 1 on 12/08/2023 by Santosh Blackwell MD at [facility] Left: Hip [employer] [id number] 10/16/2028 [id number] / / [id number] Insurance [facility] Advance Directives For more information, please contact: [phone] * Full Code (Latest Code Status on File) Date Activated Date Inactivated Comments 12/08/2023 11:42 AM 12/08/2023 6:38 PM Care Teams Wine Fermenter Relationship Specialty Start Date End Date Edwin Delaney MD [address] [place] [address] PCP - General 03/11/20 Santosh Blackwell MD [address] [place] [address] DR MODI [address] [place] [address] Surgeon Orthopedic Surgery 12/08/23
[2025-04-17 07:08] VITALS: BP 127/79; PULSE 82; RESP 16; TEMP 36.2; O2SAT 98; BMI 46.0
--- NOTE | 2025-04-17 07:11 | WPDANESEPPF ---
Anes - Initial Pre Proc Eval Procedure: Operation Date: 04/17/25 08:30 Proposed Procedures p Esophagogastroduodenoscopy - Alex Meeks MD Date/Time: 04/17/25 07:11 Surgeon: Alex Meeks MD Pre Op Diagnosis: Gore's esophagus without dysplasia Patient Data Age: 54 Gender: M Height: 1.85 m Weight: 158.3 kg Last Vital Signs Temp 36.2 C L 04/17/25 07:08 Pulse 82 04/17/25 07:08 Resp 16 04/17/25 07:08 BP 127/79 04/17/25 07:08 Pulse Ox 98 04/17/25 07:08 O2 Del Method Room Air 04/17/25 07:08 Allergies Allergy/AdvReac Type Severity Reaction Status Date / Time No Known Allergies Allergy Unknown Verified 04/17/25 07:07 Home Medications ?Medication ?Instructions ?Recorded ?Confirmed ?Type albuterol sulfate 90 mcg/actuation 2 inh inhalation DAILY PRN Wheezing 03/23/22 04/17/25 History aerosol inhaler omeprazole 20 mg capsule,delayed 40 mg (2 x 20 mg) PO .bid #60 caps 06/15/23 04/17/25 Rx release montelukast 10 mg tablet 10 mg PO QPM 12/25/24 04/17/25 History umeclidinium 62.5 mcg-vilanterol 1 inh inhalation Q24H 12/25/24 04/17/25 History 25 mcg/actuation powdr for inhalation (Anoro Ellipta) Patient hx anesthesia problems: none Family hx anesthesia problems: none Results Review: All pre-operative results and documents have been reviewed as part of the pre-operative evaluation. ON LICENSE OF [facility] Past Medical History Medical History Dysphagia Colon cancer screening Barretts esophagus History of esophageal stricture BMI greater than 40 Degenerative joint disease (DJD) of hip Coughing Wheezing Left hip pain ARNOLD (obstructive sleep apnea) Chest pain Obesity Family History Family History Other Myasthenia Social History Social History Smoking status: Never smoker Tobacco type: smokeless tobacco Smokeless tobacco user: chewing tobacco Alcohol intake: current Drinks per week: 8 Alcohol use details: 6-8 drinks per week Substance use: never Substance use type: does not use Living arrangements: with family Additional living arrangements comments: with sp Gender identity (if verbalized by the patient): Male Spiritual care concerns: No Anes - Eval Final PreProcedure Day of Procedure 04/17/25 07:11 Patient weight: morbidly obese Heart: regular rate and rhythm Lungs: clear to auscultation Airway: Mallampati scale class III Neurological: alert and oriented Last oral intake: >/= 8 hours ASA classification: III Emergent: no Anesthetic plan: proceed Anesthesia type and monitoring: general GIVS and standard monitoring Results Review: All pre-operative results and documents have been reviewed as part of the pre-operative evaluation. Informed Consent: The patient's anesthetic plan and its attendant risks and benefits were discussed with the patient/family/POA. Questions were solicited and answers provided to the satisfaction of the patient/family/POA.
[2025-04-17] MEDS: LACTATED RINGERS 1,000 ML 150 ML IV CONT (07:14)
--- NOTE | 2025-04-17 08:06 | PM.HPGS ---
History of Present Illness History of Present Illness Consent: Risks, benefits, and alternatives have been discussed and questions answered. Patient agrees to proceed with procedure. 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 Narrative: Skyler Polanco is a 54 year old male Review of Systems Review of Systems: All systems reviewed & are unremarkable except as noted in HPI and below PMFSH Past Medical History Medical History Dysphagia Colon cancer screening Barretts esophagus History of esophageal stricture BMI greater than 40 Degenerative joint disease (DJD) of hip Coughing Wheezing Left hip pain ARNOLD (obstructive sleep apnea) Chest pain Obesity Family History Family History Other Myasthenia Social History Social History Smoking status: Never smoker Tobacco type: smokeless tobacco Smokeless tobacco user: chewing tobacco Alcohol intake: current Drinks per week: 8 Alcohol use details: 6-8 drinks per week Substance use: never Substance use type: does not use Living arrangements: with family Additional living arrangements comments: with sp Gender identity (if verbalized by the patient): Male Spiritual care concerns: No Meds Home Medications and Allergies Home Medications ?Medication ?Instructions ?Recorded ?Confirmed ?Type albuterol sulfate 90 mcg/actuation 2 inh inhalation DAILY PRN Wheezing 03/23/22 04/17/25 History aerosol inhaler omeprazole 20 mg capsule,delayed 40 mg (2 x 20 mg) PO .bid #60 caps 06/15/23 04/17/25 Rx release montelukast 10 mg tablet 10 mg PO QPM 12/25/24 04/17/25 History umeclidinium 62.5 mcg-vilanterol 1 inh inhalation Q24H 12/25/24 04/17/25 History 25 mcg/actuation powdr for inhalation (Anoro Ellipta) Allergies Allergy/AdvReac Type Severity Reaction Status Date / Time No Known Allergies Allergy Unknown Verified 04/17/25 07:07 Vital Signs Vital Signs - 24 hr 04/17/25 07:08 Temperature 97.2 F L Pulse Rate 82 Respiratory Rate 16 Blood Pressure 127/79 Pulse Oximetry 98 Oxygen Delivery Room Air Exam Const: General: cooperative and healthy appearing Resp: Effort & Inspection: normal respiratory effort and able to speak in complete sentences Auscultation: clear to auscultation bilaterally Cardio: Rate: regular rate Rhythm: regular rhythm GI: Inspection: normal to inspection GI Palp: No No hepatosplenomegaly present Auscultation: normal bowel sounds Rectal Exam: deferred Skin: General skin exam: normal color Psych: Appearance: grossly normal Mental Status: mental status grossly normal Assessment and Plan Assessment and plan (1) Barretts esophagus: Code(s): K22.70 - 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 Patient is here for surveillance endoscopy.
[2025-04-17] MEDS: BENZOCAINE (*SP) 60 ML SPRAY CAN (HURRICAINE) 1 SPRAY MUCOUS MEM (08:09)
--- NOTE | 2025-04-17 08:15 | S_PTH ---
PATIENT: Skyler Polanco LOC: [facility] U#:[id number] AGE/SX: 54/M ROOM: RE04/17/[address]: Alex Meeks MD : 1970 BED: DIS: 04/17/2025 SPEC #: [id number] RECD: 04/17/25 08:26 STATUS: TRISHA REMarck #: [id number] JUDITH: 04/17/25 08:[address]: Laurence Roca DEPT: [facility] Surgical RECD BY: Jeff Mercer ENTERED: 04/17/25 08:27 SP TYPE: Surgical OTHR DR: MD Alex Bassett MD Tissues: A - Esophageal Biopsy Procedures: Hematoxylin and Eosin Stain Gross and Microscopic Level 4
[2025-04-17 08:20] VITALS: BP 120/80; PULSE 81; RESP 22; O2SAT 94
[2025-04-17 08:30] VITALS: BP 132/76; PULSE 70; RESP 24; O2SAT 92
[2025-04-17 08:40] VITALS: PULSE 57; RESP 18; O2SAT 95
== END 2025-04-17 08:50 | disposition home or self-care (01) ==
PROVIDERS: Internal Medicine Gastroenterology; PCP Family Medicine; Referring Provider Internal Medicine Gastroenterology; Visit Provider Internal Medicine Gastroenterology
PROC: 0DJ08ZZ Inspection of Upper Intestinal Tract, Via Natural or Artificial Opening Endoscopic (ICD-10-PCS; principal; 2025-04-17 08:30)
DX: K22.70 Barrett's esophagus without dysplasia (principal); F17.220 Nicotine dependence, chewing tobacco, uncomplicated; E66.01 Morbid (severe) obesity due to excess calories; Z68.42 Body mass index [BMI] 45.0-49.9, adult
CPT/HCPCS: 43239; 88305; J2003; J2704; J7120